=== PATIENT | male | born 1950 | race Asian ===

== ENCOUNTER 2018-05-25 18:55 | Inpatient (IN) | payer MEDICARE, OTHER ==
[~2018-05-25] VITALS: Ht 162.6 cm; Wt 108.4 kg
[~2018-05-25 18:55] MED LIST: ALFU10TA30 PO; AMLO-511 PO; ASCO500 PO; ASPI81 PO; ATEN25TA PO; ATOR40TA28 PO; CHLO240L TP; DOCU250C91 PO; DOCU283E PR; ENOX40DI9 SQ; FLUC200T PO; HYDR25TA PO; HYDR30OI13 TP; INSLAN SQ; INSU100V SQ; LEVO200 PO; LINE600 PO; MULT-1239 PO; NIFE10 PO; PERCT10 PO; SILV480G TP; SITA50 PO
[2018-05-25 19:35] VITALS: BP 159/86
[2018-05-25] MEDS ORDERED: DEXTROSE 50%-WATER 25 GM/50 ML SYRINGE IVP PRN ×3 (20:00)
[2018-05-25] MEDS ORDERED: DOCUSATE SODIUM 283 MG/5 ML MINI-ENEMA PR PRN (20:00)
[2018-05-25] MEDS ORDERED: INSULIN LISPRO 100 UNITS/ML SQ PRN ×2 (20:00)
[2018-05-25] MEDS ORDERED: ALBUTEROL SULFATE HFA 90 MCG/PUFF 8 GM INHALER IH PRN (20:00)
[2018-05-25] MEDS ORDERED: LACTULOSE 20 GM/30 ML SOLUTION UDCUP PO PRN (20:00)
[2018-05-25 21:48] LABS: GLUCOMETER DEV NAME(LOC) 2WR.2; GLUCOSE,POINT OF CARE 135 MG/DL (70-110)
[2018-05-25 21:53] VITALS: BP 135/62
[2018-05-25] MEDS: SODIUM CHLORIDE 1 GM TABLET PO SCH (21:54)
[2018-05-25] MEDS: FAMOTIDINE 20 MG TABLET PO SCH (21:54)
[2018-05-25] MEDS: ATENOLOL 25 MG TABLET PO SCH (21:55)
[2018-05-25] MEDS: SENNA 187 MG TABLET PO SCH (21:55)
[2018-05-25] MEDS: DOCUSATE SODIUM 100 MG CAPSULE PO SCH (21:55)
[2018-05-25] MEDS: INSULIN GLARGINE,HUM.REC.ANLOG 100 UNITS/ML SQ SCH (21:57)
[2018-05-25] MEDS ORDERED: SODIUM CL IRRIG SOLN BOTTLE 250 ML IRRIG ONE (22:19)
[2018-05-26] VITALS: BP 120/72
[2018-05-26] MEDS: GABAPENTIN 100 MG CAPSULE PO SCH ×4 (00:22→22:46)
[2018-05-26 05:54] LABS: GLUCOMETER DEV NAME(LOC) 2WR.1; GLUCOSE,POINT OF CARE 133 MG/DL (70-110)
[2018-05-26] MEDS: LEVOTHYROXINE SODIUM 100 MCG TABLET PO SCH (06:42)
[2018-05-26 07:11] LABS: BASOPHILS % (AUTO) 1.1 % (0.0-2.0); EOSINOPHILS % (AUTO) 2.1 % (1.0-6.0); HEMATOCRIT 25.8 % (41-53); HEMOGLOBIN 8.2 g/dL (13.5-17.5); LYMPHOCYTES # (AUTO) 1.1 K/uL (1.0-4.8); LYMPHOCYTES % (AUTO) 11.4 % (22.0-44.0); MEAN CORPUSCULAR HEMOGLOBIN 28.5 pg (26.0-34.0); MEAN CORPUSCULAR HGB CONC 31.7 G/dL (31.0-37.0); MEAN CORPUSCULAR VOLUME 90 fL (80-100); MONOCYTES # (AUTO) 0.6 K/uL (0.1-1.0); MONOCYTES % (AUTO) 6.4 % (2.0-9.0); NEUTROPHILS # (AUTO) 7.4 K/uL (1.8-7.7); PLATELET COUNT (AUTO) 159 K/uL (150-450); RED BLOOD CELL COUNT(AUTO) 2.86 MIL/uL (4.50-5.90); RED CELL DISTRIBUTION WIDTH 16.7 % (11.5-14.5)
[2018-05-26 07:25] LABS: ALANINE AMINOTRANSFERASE 56 U/L (12-78); ALBUMIN 2.8 g/dL (3.4-5.0); ALKALINE PHOSPHATASE 56 U/L (46-116); ANION GAP 7 mmol/L (8-16); ASPARTATE AMINOTRANSFERASE 61 U/L (15-37); BILIRUBIN,TOTAL 0.3 mg/dL (0.1-1.0); CALCIUM, TOTAL 8.7 mg/dL (8.8-10.5); CARBON DIOXIDE 30 mmol/L (22-29); CHLORIDE 105 mmol/L (98-107); CREATININE 1.11 mg/dL (0.60-1.30); GLOMERULAR FILTR. RATE CALC > 60 mL/min (>60); GLUCOSE,RANDOM 123 mg/dL (70-110); POTASSIUM 4.7 mmol/L (3.5-5.1); SODIUM SERUM 142 mmol/L (136-145); TOTAL PROTEIN, SERUM 6.4 g/dL (6.4-8.2); UREA NITROGEN, BLOOD 23 mg/dL (7-18)
[2018-05-26 07:51] VITALS: BP 142/87
[2018-05-26] MEDS: MULTIVITAMINS WITH IRON TABLET PO SCH (08:40)
[2018-05-26] MEDS: MINOCYCLINE HCL 100 MG CAPSULE PO SCH (08:40)
[2018-05-26] MEDS: LISINOPRIL 20 MG TABLET PO SCH (08:40)
[2018-05-26] MEDS: SODIUM CHLORIDE 1 GM TABLET PO SCH ×3 (08:40→21:14)
[2018-05-26] MEDS: SitaGLIPtin PHOSPHATE 50 MG TABLET PO SCH (08:41)
[2018-05-26] MEDS: FAMOTIDINE 20 MG TABLET PO SCH ×2 (08:41→21:15)
[2018-05-26] MEDS: ATENOLOL 25 MG TABLET PO SCH ×2 (08:41→21:15)
[2018-05-26] MEDS: ALFUZOSIN HCL 10 MG ER TABLET PO SCH (08:41)
[2018-05-26] MEDS: ASPIRIN 81 MG CHEWABLE TABLET PO SCH (08:41)
[2018-05-26] MEDS: SENNA 187 MG TABLET PO SCH ×2 (08:42→21:15)
[2018-05-26] MEDS: DOCUSATE SODIUM 100 MG CAPSULE PO SCH ×2 (08:42→21:15)
[2018-05-26] MEDS: INSULIN LISPRO 100 UNITS/ML SQ SCH ×3 (08:49→17:09)
[2018-05-26 11:54] LABS: GLUCOMETER DEV NAME(LOC) 2WR.2; GLUCOSE,POINT OF CARE 128 MG/DL (70-110)
[2018-05-26 16:04] VITALS: BP 137/76
[2018-05-26 16:44] LABS: GLUCOMETER DEV NAME(LOC) 2WR.2; GLUCOSE,POINT OF CARE 112 MG/DL (70-110)
[2018-05-26] MEDS: CAMPHOR/MENTHOL 222 ML LOTION TP SCH ×2 (17:27→21:16)
[2018-05-26] MEDS: ACETAMINOPHEN 325 MG TABLET PO PRN (17:30)
[2018-05-26 21:12] VITALS: BP 141/69
[2018-05-26] MEDS: DiphenhydrAMINE HCL 25 MG CAPSULE PO SCH (21:14)
[2018-05-26] MEDS: INSULIN GLARGINE,HUM.REC.ANLOG 100 UNITS/ML SQ SCH (21:18)
[2018-05-27 00:52] VITALS: BP 120/64
[2018-05-27 05:38] LABS: GLUCOMETER DEV NAME(LOC) 2WR.1; GLUCOSE,POINT OF CARE 113 MG/DL (70-110)
[2018-05-27] MEDS: LEVOTHYROXINE SODIUM 100 MCG TABLET PO SCH (05:44)
[2018-05-27 06:19] LABS: GLUCOMETER DEV NAME(LOC) 2WR.1; GLUCOSE,POINT OF CARE 179 MG/DL (70-110)
[2018-05-27 07:25] VITALS: BP 128/71
[2018-05-27] MEDS: SitaGLIPtin PHOSPHATE 50 MG TABLET PO SCH (08:15)
[2018-05-27] MEDS: DOCUSATE SODIUM 100 MG CAPSULE PO SCH ×2 (08:15→20:54)
[2018-05-27] MEDS: ASPIRIN 81 MG CHEWABLE TABLET PO SCH (08:15)
[2018-05-27] MEDS: ALFUZOSIN HCL 10 MG ER TABLET PO SCH (08:16)
[2018-05-27] MEDS: FAMOTIDINE 20 MG TABLET PO SCH ×2 (08:16→20:54)
[2018-05-27] MEDS: GABAPENTIN 100 MG CAPSULE PO SCH ×3 (08:16→20:54)
[2018-05-27] MEDS: MINOCYCLINE HCL 100 MG CAPSULE PO SCH (08:16)
[2018-05-27] MEDS: SENNA 187 MG TABLET PO SCH ×2 (08:17→20:54)
[2018-05-27] MEDS: MULTIVITAMINS WITH IRON TABLET PO SCH (08:17)
[2018-05-27] MEDS: LISINOPRIL 20 MG TABLET PO SCH (08:17)
[2018-05-27] MEDS: SODIUM CHLORIDE 1 GM TABLET PO SCH ×2 (08:17→20:55)
[2018-05-27] MEDS: ATENOLOL 25 MG TABLET PO SCH ×2 (08:21→20:55)
[2018-05-27] MEDS: INSULIN LISPRO 100 UNITS/ML SQ SCH ×3 (08:31→17:09)
[2018-05-27] MEDS: CAMPHOR/MENTHOL 222 ML LOTION TP SCH ×3 (08:32→20:55)
[2018-05-27 12:54] LABS: GLUCOMETER DEV NAME(LOC) 2WR.1; GLUCOSE,POINT OF CARE 102 MG/DL (70-110)
[2018-05-27 15:59] VITALS: BP 128/70
[2018-05-27] MEDS: INSULIN LISPRO 100 UNITS/ML SQ PRN (17:10)
[2018-05-27 17:44] LABS: GLUCOMETER DEV NAME(LOC) 2WR.1; GLUCOSE,POINT OF CARE 144 MG/DL (70-110)
[2018-05-27 20:52] VITALS: BP 138/58
[2018-05-27] MEDS: SOLIFENACIN SUCCINATE 5 MG TABLET PO SCH (20:54)
[2018-05-27] MEDS: DiphenhydrAMINE HCL 25 MG CAPSULE PO SCH (20:54)
[2018-05-27] MEDS: INSULIN GLARGINE,HUM.REC.ANLOG 100 UNITS/ML SQ SCH (21:05)
[2018-05-27 21:49] LABS: GLUCOMETER DEV NAME(LOC) 2WR.2; GLUCOSE,POINT OF CARE 139 MG/DL (70-110)
[2018-05-28 00:45] VITALS: BP 131/73
[2018-05-28] MEDS: LEVOTHYROXINE SODIUM 100 MCG TABLET PO SCH (05:38)
[2018-05-28 06:19] LABS: GLUCOMETER DEV NAME(LOC) 2WR.2; GLUCOSE,POINT OF CARE 103 MG/DL (70-110)
[2018-05-28 08:07] VITALS: BP_SYST 105; BP_SYST 123; BP_DIAS 63; BP_DIAS 68
[2018-05-28] MEDS: SitaGLIPtin PHOSPHATE 50 MG TABLET PO SCH (08:29)
[2018-05-28] MEDS: SENNA 187 MG TABLET PO SCH ×2 (08:30→20:12)
[2018-05-28] MEDS: DOCUSATE SODIUM 100 MG CAPSULE PO SCH ×2 (08:30→20:05)
[2018-05-28] MEDS: FAMOTIDINE 20 MG TABLET PO SCH ×2 (08:30→20:11)
[2018-05-28] MEDS: ASPIRIN 81 MG CHEWABLE TABLET PO SCH (08:30)
[2018-05-28] MEDS: GABAPENTIN 100 MG CAPSULE PO SCH ×3 (08:31→20:11)
[2018-05-28] MEDS: LISINOPRIL 20 MG TABLET PO SCH (08:31)
[2018-05-28] MEDS: MINOCYCLINE HCL 100 MG CAPSULE PO SCH (08:32)
[2018-05-28] MEDS: MULTIVITAMINS WITH IRON TABLET PO SCH (08:32)
[2018-05-28] MEDS: SODIUM CHLORIDE 1 GM TABLET PO SCH ×2 (08:32→20:12)
[2018-05-28] MEDS: ALFUZOSIN HCL 10 MG ER TABLET PO SCH (08:32)
[2018-05-28] MEDS: ATENOLOL 25 MG TABLET PO SCH ×2 (08:32→20:12)
[2018-05-28] MEDS: INSULIN LISPRO 100 UNITS/ML SQ SCH ×3 (08:36→18:08)
[2018-05-28] MEDS: CAMPHOR/MENTHOL 222 ML LOTION TP SCH ×3 (12:11→20:19)
[2018-05-28 12:24] LABS: GLUCOMETER DEV NAME(LOC) 2WR.2; GLUCOSE,POINT OF CARE 74 MG/DL (70-110)
[2018-05-28 15:39] VITALS: BP 130/65
[2018-05-28 16:24] LABS: GLUCOMETER DEV NAME(LOC) 2WR.1; GLUCOSE,POINT OF CARE 155 MG/DL (70-110)
[2018-05-28] MEDS: INSULIN LISPRO 100 UNITS/ML SQ PRN (18:08)
[2018-05-28] MEDS: DiphenhydrAMINE HCL 25 MG CAPSULE PO SCH (20:11)
[2018-05-28] MEDS: SOLIFENACIN SUCCINATE 5 MG TABLET PO SCH (20:11)
[2018-05-28] MEDS: INSULIN GLARGINE,HUM.REC.ANLOG 100 UNITS/ML SQ SCH (20:21)
[2018-05-28 22:54] LABS: GLUCOMETER DEV NAME(LOC) 2WR.1; GLUCOSE,POINT OF CARE 106 MG/DL (70-110)
[2018-05-29] VITALS: BP 120/56
[2018-05-29] MEDS: LEVOTHYROXINE SODIUM 100 MCG TABLET PO SCH (05:58)
[2018-05-29 06:24] LABS: GLUCOMETER DEV NAME(LOC) 2WR.1; GLUCOSE,POINT OF CARE 100 MG/DL (70-110)
[2018-05-29 07:35] VITALS: BP 125/82
[2018-05-29] MEDS: SILVER 45 ML GEL TP SCH (08:44)
[2018-05-29] MEDS: SODIUM CHLORIDE 1 GM TABLET PO SCH ×2 (08:44→20:05)
[2018-05-29] MEDS: MINOCYCLINE HCL 100 MG CAPSULE PO SCH (08:44)
[2018-05-29] MEDS: ALFUZOSIN HCL 10 MG ER TABLET PO SCH (08:44)
[2018-05-29] MEDS: MULTIVITAMINS WITH IRON TABLET PO SCH (08:45)
[2018-05-29] MEDS: SitaGLIPtin PHOSPHATE 50 MG TABLET PO SCH (08:45)
[2018-05-29] MEDS: LISINOPRIL 20 MG TABLET PO SCH (08:45)
[2018-05-29] MEDS: FAMOTIDINE 20 MG TABLET PO SCH ×2 (08:46→20:06)
[2018-05-29] MEDS: GABAPENTIN 100 MG CAPSULE PO SCH ×3 (08:46→20:05)
[2018-05-29] MEDS: ASPIRIN 81 MG CHEWABLE TABLET PO SCH (08:46)
[2018-05-29] MEDS: SENNA 187 MG TABLET PO SCH (08:46)
[2018-05-29] MEDS: DOCUSATE SODIUM 100 MG CAPSULE PO SCH (08:46)
[2018-05-29] MEDS: ATENOLOL 25 MG TABLET PO SCH ×2 (08:46→20:12)
[2018-05-29] MEDS: CAMPHOR/MENTHOL 222 ML LOTION TP SCH ×3 (08:46→20:10)
[2018-05-29] MEDS: INSULIN LISPRO 100 UNITS/ML SQ SCH ×3 (08:51→17:29)
[2018-05-29] MEDS ORDERED: MULTIVITAMINS WITH MINERALS, THERAPEUTIC TABLET PO SCH (09:00)
[2018-05-29] MEDS: ACETAMINOPHEN 325 MG TABLET PO PRN (10:39)
[2018-05-29 12:20] LABS: GLUCOMETER DEV NAME(LOC) 2WR.2; GLUCOSE,POINT OF CARE 118 MG/DL (70-110)
[2018-05-29 16:36] VITALS: BP 121/70
[2018-05-29 17:24] LABS: GLUCOMETER DEV NAME(LOC) 2WR.2; GLUCOSE,POINT OF CARE 115 MG/DL (70-110)
[2018-05-29 19:52] VITALS: BP 145/75
[2018-05-29] MEDS: SOLIFENACIN SUCCINATE 5 MG TABLET PO SCH (20:05)
[2018-05-29] MEDS: DiphenhydrAMINE HCL 25 MG CAPSULE PO SCH (20:05)
[2018-05-29 20:19] LABS: GLUCOMETER DEV NAME(LOC) 2WR.2; GLUCOSE,POINT OF CARE 122 MG/DL (70-110)
[2018-05-29] MEDS: INSULIN GLARGINE,HUM.REC.ANLOG 100 UNITS/ML SQ SCH (20:21)
[2018-05-30 00:41] VITALS: BP 126/62
[2018-05-30] MEDS: LEVOTHYROXINE SODIUM 100 MCG TABLET PO SCH (05:44)
[2018-05-30 06:09] LABS: GLUCOMETER DEV NAME(LOC) 2WR.2; GLUCOSE,POINT OF CARE 116 MG/DL (70-110)
[2018-05-30 06:29] LABS: EOSINOPHILS % (AUTO) 2.4 % (1.0-6.0); HEMATOCRIT 26.3 % (41-53); HEMOGLOBIN 8.4 g/dL (13.5-17.5); LYMPHOCYTES # (AUTO) 1.1 K/uL (1.0-4.8); LYMPHOCYTES % (AUTO) 10.9 % (22.0-44.0); MEAN CORPUSCULAR HEMOGLOBIN 28.5 pg (26.0-34.0); MEAN CORPUSCULAR VOLUME 89 fL (80-100); MONOCYTES # (AUTO) 0.7 K/uL (0.1-1.0); MONOCYTES % (AUTO) 7.2 % (2.0-9.0); NEUTROPHILS # (AUTO) 7.7 K/uL (1.8-7.7); NEUTROPHILS % (AUTO) 78.5 % (40.0-70.0); PLATELET COUNT (AUTO) 171 K/uL (150-450); RED BLOOD CELL COUNT(AUTO) 2.94 MIL/uL (4.50-5.90); RED CELL DISTRIBUTION WIDTH 16.3 % (11.5-14.5)
[2018-05-30 07:00] LABS: ANION GAP 7 mmol/L (8-16); CALCIUM, TOTAL 8.7 mg/dL (8.8-10.5); CARBON DIOXIDE 29 mmol/L (22-29); CHLORIDE 103 mmol/L (98-107); CREATININE 1.11 mg/dL (0.60-1.30); GLOMERULAR FILTR. RATE CALC > 60 mL/min (>60); GLUCOSE,RANDOM 118 mg/dL (70-110); POTASSIUM 4.5 mmol/L (3.5-5.1); SODIUM SERUM 139 mmol/L (136-145); UREA NITROGEN, BLOOD 26 mg/dL (7-18)
[2018-05-30 07:35] VITALS: BP 124/64
[2018-05-30] MEDS: SODIUM CHLORIDE 1 GM TABLET PO SCH ×2 (08:12→21:00)
[2018-05-30] MEDS: SILVER 45 ML GEL TP SCH (08:12)
[2018-05-30] MEDS: ALFUZOSIN HCL 10 MG ER TABLET PO SCH (08:12)
[2018-05-30] MEDS: MINOCYCLINE HCL 100 MG CAPSULE PO SCH (08:12)
[2018-05-30] MEDS: CAMPHOR/MENTHOL 222 ML LOTION TP SCH ×3 (08:12→21:09)
[2018-05-30] MEDS: GABAPENTIN 100 MG CAPSULE PO SCH ×3 (08:13→20:59)
[2018-05-30] MEDS: FAMOTIDINE 20 MG TABLET PO SCH ×2 (08:13→21:00)
[2018-05-30] MEDS: SitaGLIPtin PHOSPHATE 50 MG TABLET PO SCH (08:13)
[2018-05-30] MEDS: ATENOLOL 25 MG TABLET PO SCH ×2 (08:13→21:00)
[2018-05-30] MEDS: LISINOPRIL 20 MG TABLET PO SCH (08:13)
[2018-05-30] MEDS: ASPIRIN 81 MG CHEWABLE TABLET PO SCH (08:13)
[2018-05-30] MEDS: MULTIVITAMINS WITH IRON TABLET PO SCH (08:13)
[2018-05-30] MEDS: ACETAMINOPHEN 325 MG TABLET PO PRN ×3 (08:15→20:59)
[2018-05-30] MEDS: INSULIN LISPRO 100 UNITS/ML SQ SCH ×3 (08:23→17:40)
[2018-05-30] MEDS ORDERED: SOD FERRIC GLUC COMPLX/SUCROSE 125 MG in SODIUM CHLORIDE 0.9% 100 ML IV SCH (12:00)
[2018-05-30 12:54] LABS: GLUCOMETER DEV NAME(LOC) 2WR.2; GLUCOSE,POINT OF CARE 131 MG/DL (70-110)
[2018-05-30 15:18] VITALS: BP 121/57
[2018-05-30] MEDS ORDERED: SODIUM CHLORIDE 0.9% 250 ML IV ONE (16:19)
[2018-05-30] MEDS: EPOETIN ALFA 10,000 UNITS/ML VIAL SQ SCH (17:07)
[2018-05-30] MEDS: SOD FERRIC GLUC COMPLX/SUCROSE 125 MG in SODIUM CHLORIDE 0.9% 100 ML IV SCH (17:17)
[2018-05-30] MEDS: INSULIN GLARGINE,HUM.REC.ANLOG 100 UNITS/ML SQ SCH (20:56)
[2018-05-30] MEDS: SOLIFENACIN SUCCINATE 5 MG TABLET PO SCH (20:59)
[2018-05-30] MEDS: DiphenhydrAMINE HCL 25 MG CAPSULE PO SCH (20:59)
[2018-05-30] MEDS: INSULIN LISPRO 100 UNITS/ML SQ PRN (20:59)
[2018-05-30 22:09] LABS: GLUCOMETER DEV NAME(LOC) 2WR.1; GLUCOSE,POINT OF CARE 121 MG/DL (70-110)
[2018-05-30 22:09] LABS: GLUCOMETER DEV NAME(LOC) 2WR.1; GLUCOSE,POINT OF CARE 154 MG/DL (70-110)
[2018-05-31] MEDS: 0.9% SODIUM CHLORIDE 10 ML SYRINGE IVP SCH ×3 (00:57→16:02)
[2018-05-31 01:51] VITALS: BP 109/50
[2018-05-31] MEDS: ACETAMINOPHEN 325 MG TABLET PO PRN ×2 (06:00→16:03)
[2018-05-31] MEDS: LEVOTHYROXINE SODIUM 100 MCG TABLET PO SCH (06:00)
[2018-05-31 07:04] LABS: GLUCOMETER DEV NAME(LOC) 2WR.2; GLUCOSE,POINT OF CARE 108 MG/DL (70-110)
[2018-05-31 08:00] VITALS: BP 111/53
[2018-05-31] MEDS: ALFUZOSIN HCL 10 MG ER TABLET PO SCH (08:31)
[2018-05-31] MEDS: ASPIRIN 81 MG CHEWABLE TABLET PO SCH (08:31)
[2018-05-31] MEDS: FAMOTIDINE 20 MG TABLET PO SCH ×2 (08:31→20:57)
[2018-05-31] MEDS: LISINOPRIL 20 MG TABLET PO SCH (08:31)
[2018-05-31] MEDS: MULTIVITAMINS WITH IRON TABLET PO SCH (08:31)
[2018-05-31] MEDS: GABAPENTIN 100 MG CAPSULE PO SCH ×3 (08:32→20:57)
[2018-05-31] MEDS: SODIUM CHLORIDE 1 GM TABLET PO SCH ×2 (08:33→20:57)
[2018-05-31] MEDS: SitaGLIPtin PHOSPHATE 50 MG TABLET PO SCH (08:33)
[2018-05-31] MEDS: MINOCYCLINE HCL 100 MG CAPSULE PO SCH (08:35)
[2018-05-31] MEDS: INSULIN LISPRO 100 UNITS/ML SQ SCH ×3 (08:36→18:21)
[2018-05-31] MEDS: INSULIN LISPRO 100 UNITS/ML SQ PRN ×2 (08:37→18:22)
[2018-05-31] MEDS: ATENOLOL 25 MG TABLET PO SCH ×2 (09:00→20:57)
[2018-05-31 12:44] LABS: GLUCOMETER DEV NAME(LOC) 2WR.1; GLUCOSE,POINT OF CARE 71 MG/DL (70-110)
[2018-05-31] MEDS: SILVER 45 ML GEL TP SCH (13:06)
[2018-05-31] MEDS: CAMPHOR/MENTHOL 222 ML LOTION TP SCH ×3 (13:06→21:07)
[2018-05-31] MEDS: DICLOFENAC SODIUM 1% 100 GM GEL [2GM] TP SCH ×2 (16:06→21:07)
[2018-05-31 16:37] VITALS: BP 137/48
[2018-05-31] MEDS ORDERED: SODIUM CHLORIDE 0.9% 100 ML ONE (18:04)
[2018-05-31] MEDS: SOD FERRIC GLUC COMPLX/SUCROSE 125 MG in SODIUM CHLORIDE 0.9% 100 ML IV SCH (18:07)
[2018-05-31 18:18] LABS: GLUCOMETER DEV NAME(LOC) 2WR.2; GLUCOSE,POINT OF CARE 153 MG/DL (70-110)
[2018-05-31] MEDS: SOLIFENACIN SUCCINATE 5 MG TABLET PO SCH (20:57)
[2018-05-31] MEDS: DiphenhydrAMINE HCL 25 MG CAPSULE PO SCH (20:57)
[2018-05-31] MEDS: DOCUSATE SODIUM 100 MG CAPSULE PO PRN (21:00)
[2018-05-31] MEDS: INSULIN GLARGINE,HUM.REC.ANLOG 100 UNITS/ML SQ SCH (21:07)
[2018-06-01] MEDS: 0.9% SODIUM CHLORIDE 10 ML SYRINGE IVP SCH ×3 (00:09→16:51)
[2018-06-01 00:45] VITALS: BP 113/67
[2018-06-01] MEDS: LEVOTHYROXINE SODIUM 100 MCG TABLET PO SCH (06:01)
[2018-06-01 06:41] LABS: BASOPHILS % (AUTO) 0.9 % (0.0-2.0); EOSINOPHILS % (AUTO) 2.9 % (1.0-6.0); HEMATOCRIT 27.3 % (41-53); HEMOGLOBIN 8.9 g/dL (13.5-17.5); LYMPHOCYTES % (AUTO) 13.2 % (22.0-44.0); MEAN CORPUSCULAR HEMOGLOBIN 28.6 pg (26.0-34.0); MEAN CORPUSCULAR HGB CONC 32.6 G/dL (31.0-37.0); MEAN CORPUSCULAR VOLUME 88 fL (80-100); MONOCYTES # (AUTO) 0.8 K/uL (0.1-1.0); MONOCYTES % (AUTO) 10.5 % (2.0-9.0); NEUTROPHILS # (AUTO) 5.5 K/uL (1.8-7.7); NEUTROPHILS % (AUTO) 72.5 % (40.0-70.0); PLATELET COUNT (AUTO) 203 K/uL (150-450); RED BLOOD CELL COUNT(AUTO) 3.11 MIL/uL (4.50-5.90); RED CELL DISTRIBUTION WIDTH 16.8 % (11.5-14.5)
[2018-06-01 07:44] VITALS: BP 104/53
[2018-06-01 07:44] LABS: ALBUMIN 2.9 g/dL (3.4-5.0); BILIRUBIN,TOTAL 0.3 mg/dL (0.1-1.0); CREATININE 1.26 mg/dL (0.60-1.30); POTASSIUM 4.7 mmol/L (3.5-5.1); TOTAL PROTEIN, SERUM 6.5 g/dL (6.4-8.2)
[2018-06-01] MEDS: EPOETIN ALFA 10,000 UNITS/ML VIAL SQ SCH (08:07)
[2018-06-01] MEDS: DICLOFENAC SODIUM 1% 100 GM GEL [2GM] TP SCH ×3 (08:07→21:04)
[2018-06-01] MEDS: CAMPHOR/MENTHOL 222 ML LOTION TP SCH ×3 (08:07→21:04)
[2018-06-01] MEDS: ASPIRIN 81 MG CHEWABLE TABLET PO SCH (08:09)
[2018-06-01] MEDS: ACETAMINOPHEN 325 MG TABLET PO PRN (08:09)
[2018-06-01] MEDS: DOCUSATE SODIUM 100 MG CAPSULE PO PRN (08:09)
[2018-06-01] MEDS: FAMOTIDINE 20 MG TABLET PO SCH ×2 (08:09→21:04)
[2018-06-01] MEDS: SODIUM CHLORIDE 1 GM TABLET PO SCH (08:09)
[2018-06-01] MEDS: ATENOLOL 25 MG TABLET PO SCH ×2 (08:10→21:03)
[2018-06-01] MEDS: SitaGLIPtin PHOSPHATE 50 MG TABLET PO SCH (08:10)
[2018-06-01] MEDS: GABAPENTIN 100 MG CAPSULE PO SCH ×3 (08:10→21:04)
[2018-06-01] MEDS: MULTIVITAMINS WITH IRON TABLET PO SCH (08:10)
[2018-06-01] MEDS: LISINOPRIL 20 MG TABLET PO SCH (08:10)
[2018-06-01] MEDS: ALFUZOSIN HCL 10 MG ER TABLET PO SCH (08:10)
[2018-06-01] MEDS: MINOCYCLINE HCL 100 MG CAPSULE PO SCH (08:11)
[2018-06-01] MEDS: INSULIN LISPRO 100 UNITS/ML SQ SCH ×3 (08:27→18:20)
[2018-06-01 09:13] VITALS: BP 117/66
[2018-06-01 09:38] LABS: GLUCOMETER DEV NAME(LOC) 2WR.2; GLUCOSE,POINT OF CARE 107 MG/DL (70-110)
[2018-06-01 10:05] LABS: GLUCOMETER DEV NAME(LOC) 2WR.2; GLUCOSE,POINT OF CARE 108 MG/DL (70-110)
[2018-06-01] MEDS: SILVER 45 ML GEL TP SCH (13:14)
[2018-06-01 13:55] LABS: GLUCOMETER DEV NAME(LOC) 2WR.1; GLUCOSE,POINT OF CARE 127 MG/DL (70-110)
[2018-06-01 15:44] VITALS: BP 95/67
[2018-06-01 17:51] LABS: GLUCOMETER DEV NAME(LOC) 2WR.1; GLUCOSE,POINT OF CARE 130 MG/DL (70-110)
[2018-06-01] MEDS ORDERED: SODIUM CHLORIDE 0.9% 100 ML ONE (18:09)
[2018-06-01] MEDS: SOD FERRIC GLUC COMPLX/SUCROSE 125 MG in SODIUM CHLORIDE 0.9% 100 ML IV SCH (18:11)
[2018-06-01 20:57] VITALS: BP 117/47
[2018-06-01] MEDS: SOLIFENACIN SUCCINATE 5 MG TABLET PO SCH (21:03)
[2018-06-01] MEDS: ATORVASTATIN CALCIUM 40 MG TABLET PO SCH (21:03)
[2018-06-01] MEDS: DiphenhydrAMINE HCL 25 MG CAPSULE PO SCH (21:03)
[2018-06-01] MEDS: INSULIN LISPRO 100 UNITS/ML SQ PRN (21:17)
[2018-06-01] MEDS: INSULIN GLARGINE,HUM.REC.ANLOG 100 UNITS/ML SQ SCH (21:17)
[2018-06-01 21:36] LABS: GLUCOMETER DEV NAME(LOC) 2WR.2; GLUCOSE,POINT OF CARE 150 MG/DL (70-110)
[2018-06-01 23:00] VITALS: BP 111/66
[2018-06-02] MEDS: 0.9% SODIUM CHLORIDE 10 ML SYRINGE IVP SCH ×4 (00:29→23:46)
[2018-06-02] MEDS: LEVOTHYROXINE SODIUM 100 MCG TABLET PO SCH (05:52)
[2018-06-02 05:56] LABS: GLUCOMETER DEV NAME(LOC) 2WR.2; GLUCOSE,POINT OF CARE 117 MG/DL (70-110)
[2018-06-02 08:11] VITALS: BP 103/66
[2018-06-02] MEDS: ASPIRIN 81 MG CHEWABLE TABLET PO SCH (08:32)
[2018-06-02] MEDS: ATENOLOL 25 MG TABLET PO SCH ×2 (08:32→20:48)
[2018-06-02] MEDS: SitaGLIPtin PHOSPHATE 50 MG TABLET PO SCH (08:32)
[2018-06-02] MEDS: DOCUSATE SODIUM 100 MG CAPSULE PO PRN (08:32)
[2018-06-02] MEDS: LISINOPRIL 20 MG TABLET PO SCH (08:32)
[2018-06-02] MEDS: GABAPENTIN 100 MG CAPSULE PO SCH ×3 (08:32→20:47)
[2018-06-02] MEDS: ALFUZOSIN HCL 10 MG ER TABLET PO SCH (08:32)
[2018-06-02] MEDS: FAMOTIDINE 20 MG TABLET PO SCH ×2 (08:32→20:48)
[2018-06-02] MEDS: MINOCYCLINE HCL 100 MG CAPSULE PO SCH (08:32)
[2018-06-02] MEDS: MULTIVITAMINS WITH IRON TABLET PO SCH (08:32)
[2018-06-02] MEDS: DICLOFENAC SODIUM 1% 100 GM GEL [2GM] TP SCH ×3 (08:32→20:51)
[2018-06-02] MEDS: ACETAMINOPHEN 325 MG TABLET PO PRN (08:33)
[2018-06-02] MEDS: CAMPHOR/MENTHOL 222 ML LOTION TP SCH ×3 (08:33→20:51)
[2018-06-02] MEDS: INSULIN LISPRO 100 UNITS/ML SQ SCH ×3 (08:43→18:01)
[2018-06-02] MEDS: SILVER 45 ML GEL TP SCH (13:53)
[2018-06-02 13:54] LABS: GLUCOMETER DEV NAME(LOC) 2WR.2; GLUCOSE,POINT OF CARE 80 MG/DL (70-110)
[2018-06-02 16:30] VITALS: BP 119/60
[2018-06-02] MEDS: SOD FERRIC GLUC COMPLX/SUCROSE 125 MG in SODIUM CHLORIDE 0.9% 100 ML IV SCH (18:05)
[2018-06-02 18:34] LABS: GLUCOMETER DEV NAME(LOC) 2WR.2; GLUCOSE,POINT OF CARE 115 MG/DL (70-110)
[2018-06-02] MEDS: ATORVASTATIN CALCIUM 40 MG TABLET PO SCH (20:48)
[2018-06-02] MEDS: SOLIFENACIN SUCCINATE 5 MG TABLET PO SCH (20:48)
[2018-06-02] MEDS: DiphenhydrAMINE HCL 25 MG CAPSULE PO SCH (20:48)
[2018-06-02] MEDS: INSULIN GLARGINE,HUM.REC.ANLOG 100 UNITS/ML SQ SCH (20:52)
[2018-06-03 00:49] LABS: GLUCOMETER DEV NAME(LOC) 2WR.2; GLUCOSE,POINT OF CARE 121 MG/DL (70-110)
[2018-06-03 01:00] VITALS: BP 110/60
[2018-06-03] MEDS: LEVOTHYROXINE SODIUM 100 MCG TABLET PO SCH (06:02)
[2018-06-03 06:23] LABS: GLUCOMETER DEV NAME(LOC) 2WR.1; GLUCOSE,POINT OF CARE 116 MG/DL (70-110)
[2018-06-03 07:50] VITALS: BP 96/66
[2018-06-03 08:20] VITALS: BP 125/62
[2018-06-03] MEDS: DOCUSATE SODIUM 100 MG CAPSULE PO PRN (08:31)
[2018-06-03] MEDS: ALFUZOSIN HCL 10 MG ER TABLET PO SCH (08:31)
[2018-06-03] MEDS: ASPIRIN 81 MG CHEWABLE TABLET PO SCH (08:31)
[2018-06-03] MEDS: MULTIVITAMINS WITH IRON TABLET PO SCH (08:31)
[2018-06-03] MEDS: ATENOLOL 25 MG TABLET PO SCH ×2 (08:31→20:12)
[2018-06-03] MEDS: SitaGLIPtin PHOSPHATE 50 MG TABLET PO SCH (08:31)
[2018-06-03] MEDS: GABAPENTIN 100 MG CAPSULE PO SCH ×3 (08:31→20:13)
[2018-06-03] MEDS: FAMOTIDINE 20 MG TABLET PO SCH ×2 (08:31→20:12)
[2018-06-03] MEDS: LISINOPRIL 20 MG TABLET PO SCH (08:31)
[2018-06-03] MEDS: ACETAMINOPHEN 325 MG TABLET PO PRN (08:32)
[2018-06-03] MEDS: MINOCYCLINE HCL 100 MG CAPSULE PO SCH (08:32)
[2018-06-03] MEDS: 0.9% SODIUM CHLORIDE 10 ML SYRINGE IVP SCH ×2 (08:33→16:56)
[2018-06-03] MEDS: DICLOFENAC SODIUM 1% 100 GM GEL [2GM] TP SCH ×3 (08:43→20:15)
[2018-06-03] MEDS: SILVER 45 ML GEL TP SCH (08:43)
[2018-06-03] MEDS: CAMPHOR/MENTHOL 222 ML LOTION TP SCH ×3 (08:43→20:15)
[2018-06-03] MEDS: EPOETIN ALFA 10,000 UNITS/ML VIAL SQ SCH (08:43)
[2018-06-03] MEDS: INSULIN LISPRO 100 UNITS/ML SQ SCH ×3 (08:51→18:13)
[2018-06-03 15:39] LABS: GLUCOMETER DEV NAME(LOC) 2WR.2; GLUCOSE,POINT OF CARE 98 MG/DL (70-110)
[2018-06-03 16:30] VITALS: BP 104/53
[2018-06-03] MEDS: SOD FERRIC GLUC COMPLX/SUCROSE 125 MG in SODIUM CHLORIDE 0.9% 100 ML IV SCH (18:09)
[2018-06-03] MEDS: INSULIN LISPRO 100 UNITS/ML SQ PRN ×2 (18:14→20:34)
[2018-06-03] MEDS: SOLIFENACIN SUCCINATE 5 MG TABLET PO SCH (20:12)
[2018-06-03] MEDS: ATORVASTATIN CALCIUM 40 MG TABLET PO SCH (20:12)
[2018-06-03] MEDS: DiphenhydrAMINE HCL 25 MG CAPSULE PO SCH (20:12)
[2018-06-03] MEDS: INSULIN GLARGINE,HUM.REC.ANLOG 100 UNITS/ML SQ SCH (20:35)
[2018-06-03 20:44] LABS: GLUCOMETER DEV NAME(LOC) 2WR.1; GLUCOSE,POINT OF CARE 141 MG/DL (70-110)
[2018-06-03 20:48] LABS: GLUCOMETER DEV NAME(LOC) 2WR.2; GLUCOSE,POINT OF CARE 150 MG/DL (70-110)
[2018-06-04 00:15] VITALS: BP 129/51
[2018-06-04] MEDS: 0.9% SODIUM CHLORIDE 10 ML SYRINGE IVP SCH ×3 (00:40→16:13)
[2018-06-04 05:43] LABS: GLUCOMETER DEV NAME(LOC) 2WR.1; GLUCOSE,POINT OF CARE 147 MG/DL (70-110)
[2018-06-04] MEDS: LEVOTHYROXINE SODIUM 100 MCG TABLET PO SCH (06:04)
[2018-06-04 06:26] LABS: BASOPHILS % (AUTO) 0.8 % (0.0-2.0); EOSINOPHILS % (AUTO) 3.1 % (1.0-6.0); HEMATOCRIT 28.5 % (41-53); HEMOGLOBIN 9.3 g/dL (13.5-17.5); LYMPHOCYTES # (AUTO) 1.2 K/uL (1.0-4.8); LYMPHOCYTES % (AUTO) 16.7 % (22.0-44.0); MEAN CORPUSCULAR HEMOGLOBIN 28.8 pg (26.0-34.0); MEAN CORPUSCULAR HGB CONC 32.8 G/dL (31.0-37.0); MEAN CORPUSCULAR VOLUME 88 fL (80-100); MONOCYTES # (AUTO) 0.8 K/uL (0.1-1.0); MONOCYTES % (AUTO) 10.7 % (2.0-9.0); NEUTROPHILS % (AUTO) 68.7 % (40.0-70.0); PLATELET COUNT (AUTO) 191 K/uL (150-450); RED BLOOD CELL COUNT(AUTO) 3.25 MIL/uL (4.50-5.90); RED CELL DISTRIBUTION WIDTH 16.8 % (11.5-14.5)
[2018-06-04 06:35] LABS: CALCIUM, TOTAL 8.8 mg/dL (8.8-10.5); CREATININE 1.34 mg/dL (0.60-1.30); POTASSIUM 4.6 mmol/L (3.5-5.1)
[2018-06-04 07:00] VITALS: BP 107/50
[2018-06-04] MEDS: ATENOLOL 25 MG TABLET PO SCH ×2 (08:29→20:31)
[2018-06-04] MEDS: MINOCYCLINE HCL 100 MG CAPSULE PO SCH (08:29)
[2018-06-04] MEDS: ALFUZOSIN HCL 10 MG ER TABLET PO SCH (08:30)
[2018-06-04] MEDS: SitaGLIPtin PHOSPHATE 50 MG TABLET PO SCH (08:30)
[2018-06-04] MEDS: MULTIVITAMINS WITH IRON TABLET PO SCH (08:30)
[2018-06-04] MEDS: ASPIRIN 81 MG CHEWABLE TABLET PO SCH (08:31)
[2018-06-04] MEDS: DOCUSATE SODIUM 100 MG CAPSULE PO SCH (08:31)
[2018-06-04] MEDS: LISINOPRIL 20 MG TABLET PO SCH (08:31)
[2018-06-04] MEDS: GABAPENTIN 100 MG CAPSULE PO SCH ×3 (08:31→20:31)
[2018-06-04] MEDS: FAMOTIDINE 20 MG TABLET PO SCH ×2 (08:31→20:31)
[2018-06-04] MEDS: ACETAMINOPHEN 325 MG TABLET PO PRN ×3 (08:32→21:16)
[2018-06-04] MEDS: DICLOFENAC SODIUM 1% 100 GM GEL [2GM] TP SCH ×3 (08:32→20:27)
[2018-06-04] MEDS: CAMPHOR/MENTHOL 222 ML LOTION TP SCH ×3 (08:33→20:29)
[2018-06-04] MEDS: INSULIN LISPRO 100 UNITS/ML SQ SCH ×3 (08:46→17:54)
[2018-06-04] MEDS: INSULIN LISPRO 100 UNITS/ML SQ PRN ×3 (08:47→20:50)
[2018-06-04 12:48] LABS: GLUCOMETER DEV NAME(LOC) 2WR.2; GLUCOSE,POINT OF CARE 146 MG/DL (70-110)
[2018-06-04] MEDS: SILVER 45 ML GEL TP SCH (13:01)
[2018-06-04 15:59] VITALS: BP 106/60
[2018-06-04 16:12] VITALS: BP 106/60
[2018-06-04] MEDS ORDERED: SODIUM CHLORIDE 0.9% 100 ML ONE (17:31)
[2018-06-04 17:49] LABS: GLUCOMETER DEV NAME(LOC) 2WR.2; GLUCOSE,POINT OF CARE 149 MG/DL (70-110)
[2018-06-04] MEDS: SOD FERRIC GLUC COMPLX/SUCROSE 125 MG in SODIUM CHLORIDE 0.9% 100 ML IV SCH (18:17)
[2018-06-04] MEDS: DiphenhydrAMINE HCL 25 MG CAPSULE PO SCH (20:31)
[2018-06-04] MEDS: ATORVASTATIN CALCIUM 40 MG TABLET PO SCH (20:31)
[2018-06-04] MEDS: SOLIFENACIN SUCCINATE 5 MG TABLET PO SCH (20:31)
[2018-06-04] MEDS: INSULIN GLARGINE,HUM.REC.ANLOG 100 UNITS/ML SQ SCH (20:38)
[2018-06-04 21:13] LABS: GLUCOMETER DEV NAME(LOC) 2WR.2; GLUCOSE,POINT OF CARE 163 MG/DL (70-110)
[2018-06-04 21:16] VITALS: BP 111/62
[2018-06-05 02:45] VITALS: BP 112/66
[2018-06-05] MEDS: LEVOTHYROXINE SODIUM 100 MCG TABLET PO SCH (05:03)
[2018-06-05] MEDS: 0.9% SODIUM CHLORIDE 10 ML SYRINGE IVP SCH ×3 (05:03→16:43)
[2018-06-05 05:34] LABS: GLUCOMETER DEV NAME(LOC) 2WR.1; GLUCOSE,POINT OF CARE 127 MG/DL (70-110)
[2018-06-05 06:39] LABS: BASOPHILS % (AUTO) 0.8 % (0.0-2.0); EOSINOPHILS % (AUTO) 3.3 % (1.0-6.0); HEMATOCRIT 28.8 % (41-53); HEMOGLOBIN 9.3 g/dL (13.5-17.5); LYMPHOCYTES # (AUTO) 1.1 K/uL (1.0-4.8); LYMPHOCYTES % (AUTO) 14.4 % (22.0-44.0); MEAN CORPUSCULAR HEMOGLOBIN 28.5 pg (26.0-34.0); MEAN CORPUSCULAR HGB CONC 32.4 G/dL (31.0-37.0); MEAN CORPUSCULAR VOLUME 88 fL (80-100); MONOCYTES # (AUTO) 0.8 K/uL (0.1-1.0); MONOCYTES % (AUTO) 9.9 % (2.0-9.0); NEUTROPHILS # (AUTO) 5.6 K/uL (1.8-7.7); NEUTROPHILS % (AUTO) 71.6 % (40.0-70.0); PLATELET COUNT (AUTO) 186 K/uL (150-450); RED BLOOD CELL COUNT(AUTO) 3.27 MIL/uL (4.50-5.90); RED CELL DISTRIBUTION WIDTH 16.9 % (11.5-14.5)
[2018-06-05 08:07] LABS: ERYTHROCYTE SEDIMENTATION RATE 110 MM/HR (0-15)
[2018-06-05] MEDS: MINOCYCLINE HCL 100 MG CAPSULE PO SCH (08:31)
[2018-06-05] MEDS: ASPIRIN 81 MG CHEWABLE TABLET PO SCH (08:31)
[2018-06-05] MEDS: FAMOTIDINE 20 MG TABLET PO SCH ×2 (08:31→20:46)
[2018-06-05] MEDS: ATENOLOL 25 MG TABLET PO SCH ×2 (08:31→20:46)
[2018-06-05] MEDS: SitaGLIPtin PHOSPHATE 50 MG TABLET PO SCH (08:31)
[2018-06-05] MEDS: GABAPENTIN 100 MG CAPSULE PO SCH ×3 (08:31→20:46)
[2018-06-05] MEDS: MULTIVITAMINS WITH IRON TABLET PO SCH (08:32)
[2018-06-05] MEDS: LISINOPRIL 20 MG TABLET PO SCH (08:32)
[2018-06-05] MEDS: DOCUSATE SODIUM 100 MG CAPSULE PO SCH (08:32)
[2018-06-05] MEDS: ALFUZOSIN HCL 10 MG ER TABLET PO SCH (08:32)
[2018-06-05] MEDS: CAMPHOR/MENTHOL 222 ML LOTION TP SCH ×3 (08:33→20:47)
[2018-06-05] MEDS: ACETAMINOPHEN 325 MG TABLET PO PRN ×2 (08:33→21:49)
[2018-06-05] MEDS: SILVER 45 ML GEL TP SCH (08:33)
[2018-06-05] MEDS: INSULIN LISPRO 100 UNITS/ML SQ SCH ×3 (08:40→17:24)
[2018-06-05 09:07] VITALS: BP 124/60
[2018-06-05] MEDS: DICLOFENAC SODIUM 1% 100 GM GEL [2GM] TP SCH ×3 (09:46→20:47)
[2018-06-05 12:29] LABS: GLUCOMETER DEV NAME(LOC) 2WR.1; GLUCOSE,POINT OF CARE 145 MG/DL (70-110)
[2018-06-05 15:45] VITALS: BP 114/56
[2018-06-05 17:44] LABS: GLUCOMETER DEV NAME(LOC) 2WR.1; GLUCOSE,POINT OF CARE 123 MG/DL (70-110)
[2018-06-05] MEDS ORDERED: SODIUM CHLORIDE 0.9% 100 ML ONE (17:44)
[2018-06-05] MEDS: SOD FERRIC GLUC COMPLX/SUCROSE 125 MG in SODIUM CHLORIDE 0.9% 100 ML IV SCH (17:56)
[2018-06-05 20:41] VITALS: BP 130/62
[2018-06-05] MEDS: SOLIFENACIN SUCCINATE 5 MG TABLET PO SCH (20:46)
[2018-06-05] MEDS: ATORVASTATIN CALCIUM 40 MG TABLET PO SCH (20:46)
[2018-06-05] MEDS: DiphenhydrAMINE HCL 25 MG CAPSULE PO SCH (20:46)
[2018-06-05] MEDS: INSULIN GLARGINE,HUM.REC.ANLOG 100 UNITS/ML SQ SCH (21:00)
[2018-06-05] MEDS: INSULIN LISPRO 100 UNITS/ML SQ PRN (21:01)
[2018-06-05 21:33] LABS: GLUCOMETER DEV NAME(LOC) 2WR.2; GLUCOSE,POINT OF CARE 233 MG/DL (70-110)
[2018-06-06] MEDS: 0.9% SODIUM CHLORIDE 10 ML SYRINGE IVP SCH ×3 (00:38→19:07)
[2018-06-06 01:19] VITALS: BP 107/58
[2018-06-06] MEDS: LEVOTHYROXINE SODIUM 100 MCG TABLET PO SCH (05:43)
[2018-06-06 06:24] LABS: GLUCOMETER DEV NAME(LOC) 2WR.1; GLUCOSE,POINT OF CARE 100 MG/DL (70-110)
[2018-06-06 07:26] VITALS: BP 119/68
[2018-06-06] MEDS: MULTIVITAMINS WITH IRON TABLET PO SCH (08:02)
[2018-06-06] MEDS: MINOCYCLINE HCL 100 MG CAPSULE PO SCH (08:03)
[2018-06-06] MEDS: ASPIRIN 81 MG CHEWABLE TABLET PO SCH (08:03)
[2018-06-06] MEDS: DICLOFENAC SODIUM 1% 100 GM GEL [2GM] TP SCH ×3 (08:03→20:50)
[2018-06-06] MEDS: ATENOLOL 25 MG TABLET PO SCH ×2 (08:03→20:49)
[2018-06-06] MEDS: GABAPENTIN 100 MG CAPSULE PO SCH ×3 (08:03→20:49)
[2018-06-06] MEDS: SitaGLIPtin PHOSPHATE 50 MG TABLET PO SCH (08:03)
[2018-06-06] MEDS: FAMOTIDINE 20 MG TABLET PO SCH ×2 (08:03→20:50)
[2018-06-06] MEDS: LISINOPRIL 20 MG TABLET PO SCH (08:03)
[2018-06-06] MEDS: DOCUSATE SODIUM 100 MG CAPSULE PO SCH (08:03)
[2018-06-06] MEDS: CAMPHOR/MENTHOL 222 ML LOTION TP SCH ×3 (08:04→20:52)
[2018-06-06] MEDS: ACETAMINOPHEN 325 MG TABLET PO PRN ×2 (08:06→20:49)
[2018-06-06] MEDS: EPOETIN ALFA 10,000 UNITS/ML VIAL SQ SCH (08:06)
[2018-06-06] MEDS: ALFUZOSIN HCL 10 MG ER TABLET PO SCH (08:17)
[2018-06-06] MEDS: INSULIN LISPRO 100 UNITS/ML SQ SCH ×3 (08:17→19:18)
[2018-06-06] MEDS ORDERED: LISI-662 PO (12:44)
[2018-06-06] MEDS ORDERED: SITA50 PO (12:44)
[2018-06-06] MEDS ORDERED: DOCU100C34 PO (12:44)
[2018-06-06] MEDS ORDERED: MVITFE PO (12:44)
[2018-06-06] MEDS ORDERED: GABA-529 PO (12:45)
[2018-06-06] MEDS ORDERED: FAMO-136 PO (12:48)
[2018-06-06] MEDS ORDERED: ATEN-187 PO (12:48)
[2018-06-06] MEDS ORDERED: SOLI10TA PO (12:48)
[2018-06-06] MEDS ORDERED: DIPH25CA85 PO (12:51)
[2018-06-06] MEDS ORDERED: SOLI5 PO (14:33)
[2018-06-06 17:28] LABS: GLUCOMETER DEV NAME(LOC) 2WR.1; GLUCOSE,POINT OF CARE 116 MG/DL (70-110)
[2018-06-06 18:59] VITALS: BP 143/63
[2018-06-06] MEDS ORDERED: SODIUM CHLORIDE 0.9% 100 ML ONE (19:04)
[2018-06-06] MEDS: SOD FERRIC GLUC COMPLX/SUCROSE 125 MG in SODIUM CHLORIDE 0.9% 100 ML IV SCH (19:17)
[2018-06-06] MEDS: INSULIN LISPRO 100 UNITS/ML SQ PRN ×2 (19:19→21:10)
[2018-06-06 19:26] LABS: CREATININE 1.54 mg/dL (0.60-1.30); POTASSIUM 5.1 mmol/L (3.5-5.1)
[2018-06-06 20:49] VITALS: BP 144/80
[2018-06-06] MEDS: SOLIFENACIN SUCCINATE 5 MG TABLET PO SCH (20:50)
[2018-06-06] MEDS: ATORVASTATIN CALCIUM 40 MG TABLET PO SCH (20:50)
[2018-06-06] MEDS: DiphenhydrAMINE HCL 25 MG CAPSULE PO SCH (20:50)
[2018-06-06] MEDS: INSULIN GLARGINE,HUM.REC.ANLOG 100 UNITS/ML SQ SCH (21:08)
[2018-06-06 22:13] LABS: GLUCOMETER DEV NAME(LOC) 2WR.1; GLUCOSE,POINT OF CARE 166 MG/DL (70-110)
[2018-06-06 22:13] LABS: GLUCOMETER DEV NAME(LOC) 2WR.2; GLUCOSE,POINT OF CARE 141 MG/DL (70-110)
[2018-06-07] VITALS: BP 115/59
[2018-06-07] MEDS ORDERED: INSU100V SQ (00:29)
[2018-06-07] MEDS: LEVOTHYROXINE SODIUM 100 MCG TABLET PO SCH (06:02)
[2018-06-07 06:13] LABS: GLUCOMETER DEV NAME(LOC) 2WR.1; GLUCOSE,POINT OF CARE 147 MG/DL (70-110)
[2018-06-07 07:28] VITALS: BP 116/62
[2018-06-07] MEDS: 0.9% SODIUM CHLORIDE 10 ML SYRINGE IVP SCH ×3 (08:00→16:00)
[2018-06-07] MEDS: GABAPENTIN 100 MG CAPSULE PO SCH ×3 (08:09→20:56)
[2018-06-07] MEDS: MINOCYCLINE HCL 100 MG CAPSULE PO SCH (08:09)
[2018-06-07] MEDS: LISINOPRIL 20 MG TABLET PO SCH (08:09)
[2018-06-07] MEDS: DICLOFENAC SODIUM 1% 100 GM GEL [2GM] TP SCH ×3 (08:10→21:04)
[2018-06-07] MEDS: SitaGLIPtin PHOSPHATE 50 MG TABLET PO SCH (08:10)
[2018-06-07] MEDS: FAMOTIDINE 20 MG TABLET PO SCH ×2 (08:10→21:07)
[2018-06-07] MEDS: DOCUSATE SODIUM 100 MG CAPSULE PO SCH (08:10)
[2018-06-07] MEDS: ASPIRIN 81 MG CHEWABLE TABLET PO SCH (08:10)
[2018-06-07] MEDS: MULTIVITAMINS WITH IRON TABLET PO SCH (08:10)
[2018-06-07] MEDS: ATENOLOL 25 MG TABLET PO SCH ×2 (08:10→20:57)
[2018-06-07] MEDS: ALFUZOSIN HCL 10 MG ER TABLET PO SCH (08:10)
[2018-06-07] MEDS: CAMPHOR/MENTHOL 222 ML LOTION TP SCH ×3 (08:11→21:03)
[2018-06-07] MEDS: INSULIN LISPRO 100 UNITS/ML SQ SCH ×3 (08:21→17:24)
[2018-06-07] MEDS: INSULIN LISPRO 100 UNITS/ML SQ PRN (08:22)
[2018-06-07 15:15] VITALS: BP 139/57
[2018-06-07] MEDS: AMOX TR/POT CLAV 250 MG/125 MG TABLET PO SCH (16:00)
[2018-06-07 18:24] LABS: GLUCOMETER DEV NAME(LOC) 2WR.2; GLUCOSE,POINT OF CARE 136 MG/DL (70-110)
[2018-06-07 20:50] VITALS: BP 136/79
[2018-06-07] MEDS: ACETAMINOPHEN 325 MG TABLET PO PRN (20:56)
[2018-06-07] MEDS: SOLIFENACIN SUCCINATE 5 MG TABLET PO SCH (20:56)
[2018-06-07] MEDS: DiphenhydrAMINE HCL 25 MG CAPSULE PO SCH (20:56)
[2018-06-07] MEDS: ATORVASTATIN CALCIUM 40 MG TABLET PO SCH (20:56)
[2018-06-07] MEDS: INSULIN GLARGINE,HUM.REC.ANLOG 100 UNITS/ML SQ SCH (21:15)
[2018-06-07 21:58] LABS: GLUCOMETER DEV NAME(LOC) 2WR.2; GLUCOSE,POINT OF CARE 93 MG/DL (70-110)
[2018-06-08 00:54] VITALS: BP 140/60
[2018-06-08] MEDS ORDERED: MINO100 PO (05:06)
[2018-06-08] MEDS ORDERED: SARN225L TP (05:06)
[2018-06-08] MEDS ORDERED: DICL2100G TP (05:06)
[2018-06-08 05:44] LABS: GLUCOMETER DEV NAME(LOC) 2WR.2; GLUCOSE,POINT OF CARE 116 MG/DL (70-110)
[2018-06-08] MEDS: LEVOTHYROXINE SODIUM 100 MCG TABLET PO SCH (06:09)
[2018-06-08] MEDS: INSULIN LISPRO 100 UNITS/ML SQ SCH ×3 (07:00→17:38)
[2018-06-08 07:12] VITALS: BP 119/65
[2018-06-08] MEDS: MINOCYCLINE HCL 100 MG CAPSULE PO SCH (07:30)
[2018-06-08] MEDS: ALFUZOSIN HCL 10 MG ER TABLET PO SCH (08:00)
[2018-06-08] MEDS: AMOX TR/POT CLAV 250 MG/125 MG TABLET PO SCH ×2 (08:00)
[2018-06-08] MEDS: MULTIVITAMINS WITH IRON TABLET PO SCH (09:00)
[2018-06-08] MEDS: DOCUSATE SODIUM 100 MG CAPSULE PO SCH (09:00)
[2018-06-08] MEDS: CAMPHOR/MENTHOL 222 ML LOTION TP SCH ×3 (09:00→19:53)
[2018-06-08] MEDS: LISINOPRIL 20 MG TABLET PO SCH (09:00)
[2018-06-08] MEDS: FAMOTIDINE 20 MG TABLET PO SCH ×2 (09:00→19:49)
[2018-06-08] MEDS: SitaGLIPtin PHOSPHATE 50 MG TABLET PO SCH (09:00)
[2018-06-08] MEDS: GABAPENTIN 100 MG CAPSULE PO SCH ×3 (09:00→19:49)
[2018-06-08] MEDS: EPOETIN ALFA 10,000 UNITS/ML VIAL SQ SCH (09:00)
[2018-06-08] MEDS: ATENOLOL 25 MG TABLET PO SCH ×2 (09:00→19:50)
[2018-06-08] MEDS: ASPIRIN 81 MG CHEWABLE TABLET PO SCH (09:00)
[2018-06-08] MEDS: DICLOFENAC SODIUM 1% 100 GM GEL [2GM] TP SCH ×3 (09:00→20:00)
[2018-06-08] MEDS: ACETAMINOPHEN 325 MG TABLET PO PRN (12:51)
[2018-06-08] MEDS ORDERED: AMOX TR/POT CLAV 400/57.5 MG/5 ML SUSPENSION ORAL.SYG PO SCH ×2 (13:30→18:00)
[2018-06-08 13:49] LABS: GLUCOMETER DEV NAME(LOC) 2WR.2; GLUCOSE,POINT OF CARE 138 MG/DL (70-110)
[2018-06-08 14:11] LABS: CALCIUM, TOTAL 9.4 mg/dL (8.8-10.5); CREATININE 1.27 mg/dL (0.60-1.30); POTASSIUM 4.6 mmol/L (3.5-5.1)
[2018-06-08 15:00] VITALS: BP 132/75
[2018-06-08] MEDS: INSULIN LISPRO 100 UNITS/ML SQ PRN (17:40)
[2018-06-08 17:44] LABS: GLUCOMETER DEV NAME(LOC) 2WR.1; GLUCOSE,POINT OF CARE 151 MG/DL (70-110)
[2018-06-08 19:45] VITALS: BP 142/70
[2018-06-08] MEDS: SOLIFENACIN SUCCINATE 5 MG TABLET PO SCH (19:49)
[2018-06-08] MEDS: ATORVASTATIN CALCIUM 40 MG TABLET PO SCH (19:50)
[2018-06-08] MEDS: INSULIN GLARGINE,HUM.REC.ANLOG 100 UNITS/ML SQ SCH (19:52)
[2018-06-08] MEDS: AMOX TR/POT CLAV 500 MG/125 MG TABLET PO SCH ×2 (19:58→23:57)
[2018-06-08] MEDS: DiphenhydrAMINE HCL 25 MG CAPSULE PO SCH (20:01)
[2018-06-08 22:24] LABS: GLUCOMETER DEV NAME(LOC) 2WR.2; GLUCOSE,POINT OF CARE 129 MG/DL (70-110)
[2018-06-09 06:00] VITALS: BP 125/67
[2018-06-09 06:19] LABS: GLUCOMETER DEV NAME(LOC) 2WR.2; GLUCOSE,POINT OF CARE 132 MG/DL (70-110)
[2018-06-09] MEDS: LEVOTHYROXINE SODIUM 100 MCG TABLET PO SCH (06:45)
[2018-06-09] MEDS ORDERED: AMOX1TAB15 PO (06:55)
[2018-06-09 07:10] VITALS: BP 133/75
[2018-06-09] MEDS: MINOCYCLINE HCL 100 MG CAPSULE PO SCH (08:03)
[2018-06-09] MEDS: SitaGLIPtin PHOSPHATE 50 MG TABLET PO SCH (08:04)
[2018-06-09] MEDS: LISINOPRIL 20 MG TABLET PO SCH (08:04)
[2018-06-09] MEDS: ASPIRIN 81 MG CHEWABLE TABLET PO SCH (08:04)
[2018-06-09] MEDS: ATENOLOL 25 MG TABLET PO SCH (08:04)
[2018-06-09] MEDS: MULTIVITAMINS WITH IRON TABLET PO SCH (08:04)
[2018-06-09] MEDS: GABAPENTIN 100 MG CAPSULE PO SCH (08:04)
[2018-06-09] MEDS: FAMOTIDINE 20 MG TABLET PO SCH (08:04)
[2018-06-09] MEDS: ALFUZOSIN HCL 10 MG ER TABLET PO SCH (08:04)
[2018-06-09] MEDS: AMOX TR/POT CLAV 500 MG/125 MG TABLET PO SCH (08:04)
[2018-06-09] MEDS: DOCUSATE SODIUM 100 MG CAPSULE PO SCH (08:04)
[2018-06-09] MEDS: ACETAMINOPHEN 325 MG TABLET PO PRN (08:05)
[2018-06-09] MEDS: INSULIN LISPRO 100 UNITS/ML SQ SCH ×2 (08:11→13:24)
[2018-06-09] MEDS: DICLOFENAC SODIUM 1% 100 GM GEL [2GM] TP SCH (08:12)
[2018-06-09] MEDS: CAMPHOR/MENTHOL 222 ML LOTION TP SCH (08:12)
[2018-06-09 12:58] LABS: GLUCOMETER DEV NAME(LOC) 2WR.2; GLUCOSE,POINT OF CARE 130 MG/DL (70-110)
== END 2018-06-09 14:32 | disposition home health service (06) | DRG 560 ==
LOC: 2WR 19:25
PROVIDERS: ADMIT Physical Medicine & Rehabilitation; ATTEND Physical Medicine & Rehabilitation
DX: T84.54XA Infection and inflammatory reaction due to internal left knee prosthesis, initial encounter (principal); I50.30 Unspecified diastolic (congestive) heart failure; I13.0 Hypertensive heart and chronic kidney disease with heart failure and stage 1 through stage 4 chronic kidney disease, or unspecified chronic kidney disease; N17.9 Acute kidney failure, unspecified; E22.2 Syndrome of inappropriate secretion of antidiuretic hormone; Z68.41 Body mass index [BMI] 40.0-44.9, adult; M21.371 Foot drop, right foot; E03.9 Hypothyroidism, unspecified; E11.22 Type 2 diabetes mellitus with diabetic chronic kidney disease; E66.9 Obesity, unspecified; E78.5 Hyperlipidemia, unspecified; G47.33 Obstructive sleep apnea (adult) (pediatric); G89.4 Chronic pain syndrome; N18.9 Chronic kidney disease, unspecified; N40.0 Benign prostatic hyperplasia without lower urinary tract symptoms; I25.10 Atherosclerotic heart disease of native coronary artery without angina pectoris; K59.00 Constipation, unspecified; Z96.653 Presence of artificial knee joint, bilateral; M19.90 Unspecified osteoarthritis, unspecified site; D64.9 Anemia, unspecified; G58.8 Other specified mononeuropathies; R74.0 Nonspecific elevation of levels of transaminase and lactic acid dehydrogenase [LDH]; Z79.2 Long term (current) use of antibiotics; Z79.899 Other long term (current) drug therapy; Z98.1 Arthrodesis status
CPT/HCPCS: 73721; 85651; 86140; 87070; 87081; 87205; 94660; 97110; 97116; 97150; 97162; 97166; 97530; 97535; 99366; J0885; J1815; J2916; J7050